=== PATIENT | female | born 1985 | race Caucasian/White ===

== ENCOUNTER → 2016-11-07 | Outpatient (CLI) | payer OTHER ==
[~2016-11-07] MED LIST: ACET50TA PO; MOTR200T44 PO; PRENTAB8 PO
[2016-11-07 18:35] LABS: MEAN CORPUSCULAR HEMOGLOBIN 30.6 pg (27.0-33.0); MEAN CORPUSCULAR HGB CONC 33.2 g/dl (32.0-36.5); RED CELL DISTRIBUTION WIDTH 12.7 % (11.5-14.5); WHITE BLOOD COUNT 9.2 K/mm3 (4.0-10.0)
[2016-11-07 19:24] LABS: FREE T4 0.85 NG/DL (0.76-1.46)
== END ==
LOC: M SMT 15:05
PROVIDERS: ATTEND Specialist
DX: R53.83 Other fatigue (principal)

== ENCOUNTER → 2018-07-30 | Outpatient (CLI) | payer OTHER ==
[~2018-07-30] MED LIST changes: -ACET50TA PO; +MAPA500T2 PO
[2018-07-30 13:29] LABS: BASO % 0.4 % (0.0-1.0); EOS # 0.1 10^3/uL (0.0-0.50); EOS % 0.8 % (0.0-3.0); HEMATOCRIT 42.8 % (36.0-47.0); HEMOGLOBIN 14.3 g/dl (12.0-15.5); LYMPH # 2.2 10^3/uL (1.5-4.5); LYMPH % 29.8 % (24.0-44.0); MEAN CORPUSCULAR HEMOGLOBIN 29.7 pg (27.0-33.0); MEAN CORPUSCULAR HGB CONC 33.4 g/dl (32.0-36.5); MONO # 0.5 10^3/uL (0.0-0.8); NEUTROPHILS # 4.5 10^3/uL (1.8-7.7); NEUTROPHILS % 61.9 % (36.0-66.0); PLATELET COUNT, AUTOMATED 271 10^3/uL (150-450); RED BLOOD COUNT 4.81 10^6/uL (4.00-5.40); WHITE BLOOD COUNT 7.2 10^3/uL (4.0-10.0)
[2018-07-30 13:58] LABS: RUBELLA IgG QUALITATIVE IMMUNE (IMMUNE)
[2018-07-30 14:27] LABS: HIV 1&2 SCREEN CENTAUR NEGATIVE (NEGATIVE)
[2018-07-30 15:07] LABS: CHLAMYDIA DNA AMPLIFICATION NEGATIVE (NEGATIVE); GC DNA AMPLIFICATION NEGATIVE (NEGATIVE)
== END ==
LOC: M SMT 09:07
PROVIDERS: ATTEND Specialist
DX: Z36.89 Encounter for other specified antenatal screening (principal); Z3A.09 9 weeks gestation of pregnancy

== ENCOUNTER → 2018-09-29 | Outpatient (CLI) | payer OTHER ==
[~2018-09-29] MED LIST changes: +LEVO88TA3 PO; +OXYC1TAB23 PO
--- NOTE | 2018-09-29 11:48 | REP ---
OBSTETRIC SONOGRAPHY: HISTORY: Supervision of for anatomy. FINDINGS: Scanning through the gravid uterus demonstrates a viable single intrauterine gestation in a variable lie. motion is observed and heart rate is recorded at 157 beats per minute. A fundal anterior placenta is seen without evidence of placenta previa, grade 0. Amniotic fluid is subjectively normal. Closed cervical length is measured at 3.8 cm viewed transabdominally. No extrauterine abnormality is observed. There are three small hypoechoic areas in the anterior myometrium consistent with fibroids. These measure 2.0, 2.3, and 0.9 cm in greatest diameter respectively. No anomaly is seen. spine less than optimally seen due to position. The following additional anatomic structures are identified and felt to be unremarkable: cranium, choroid plexus, cavum, cerebellum posterior fossa, face and profile, lungs, four-chamber heart with left and right ventricular outflow tract views, diaphragm, left-sided stomach, abdominal wall cord insertion, three-vessel umbilical cord, kidneys and bladder, upper and lower extremities. Biometry Chart: BPD 4.3 cm = 18 weeks 6 days HC 16.1 cm = 18 weeks 6 days AC 14.4 cm = 19 weeks 5 days FL 3.0 cm = 19 weeks 1 day HL 2.7 cm = 18 weeks 6 days HC/AC ratio normal 1.12 Cephalic index normal 0.73. Estimated weight 291 grams, 0 pounds 10 ounces, 87th percentile for 18 weeks 3 days. IMPRESSION: Viable single intrauterine gestation of 19 weeks 1 day by today's composite criteria. JEANETH by today's sonography February 22, 2019. spine is less than optimally seen. Three small uterine fibroids are noted. Electronically Signed by Spencer Luis MD 09/29/2018 11:50 A
== END ==
LOC: M RAD 09:53
PROVIDERS: ATTEND Specialist
DX: Z34.82 Encounter for supervision of other normal pregnancy, second trimester (principal); Z3A.19 19 weeks gestation of pregnancy

== ENCOUNTER → 2018-12-02 | Outpatient (CLI) | payer OTHER ==
[~2018-12-02] MED LIST changes: -LEVO88TA3 PO; -OXYC1TAB23 PO
[2018-12-02 10:24] LABS: BASO % 0.4 % (0.0-1.0); EOS # 0.1 10^3/uL (0.0-0.5); EOS % 0.7 % (0.0-3.0); HEMATOCRIT 38.1 % (36.0-47.0); HEMOGLOBIN 12.4 g/dl (12.0-15.5); LYMPH # 1.8 10^3/uL (1.5-5.0); LYMPH % 17.8 % (24.0-44.0); MEAN CORPUSCULAR HGB CONC 32.5 g/dl (32.0-36.5); MONO # 0.6 10^3/uL (0.0-0.8); MONO % 6.4 % (0.0-5.0); NEUTROPHILS # 7.3 10^3/uL (1.5-8.5); NEUTROPHILS % 73.6 % (36.0-66.0); PLATELET COUNT, AUTOMATED 189 10^3/uL (150-450); RED BLOOD COUNT 4.14 10^6/uL (4.00-5.40); WHITE BLOOD COUNT 9.9 10^3/uL (4.0-10.0)
[2018-12-02 11:07] LABS: FREE T4 1.01 NG/DL (0.76-1.46); THYROID STIMULATING HORMONE 1.44 uIU/ML (0.358-3.740)
== END ==
LOC: M SMT 08:11
PROVIDERS: ATTEND Specialist
DX: Z34.82 Encounter for supervision of other normal pregnancy, second trimester (principal); Z36.89 Encounter for other specified antenatal screening
CPT/HCPCS: 36415; 82950; 84439; 84443; 85025; 86850; 86900; 86901; J2790

== ENCOUNTER → 2019-02-03 | Outpatient (REF) | payer OTHER | LOC: M LAB REF 17:05 | PROVIDERS: ATTEND Advanced Practice Midwife | DX: Z36.85 Encounter for antenatal screening for Streptococcus B (principal) ==

== ENCOUNTER 2019-02-18 07:26 | Outpatient (CLI) | payer OTHER ==
[~2019-02-18] VITALS: Ht 162.6 cm; Wt 85.9 kg
[2019-02-18 07:49] VITALS: BP 114/75
[2019-02-18 08:33] VITALS: BP 123/74
[2019-02-18 10:11] VITALS: BP 136/74
[2019-02-20] MEDS ORDERED: LEVO88TA3 PO (09:45)
== END 2019-02-18 10:13 | disposition home or self-care (01) ==
LOC: M LDO 07:26
PROVIDERS: ATTEND Obstetrics & Gynecology
DX: O32.1XX1 Maternal care for breech presentation, fetus 1 (principal); Z3A.38 38 weeks gestation of pregnancy
CPT/HCPCS: 59025; 59412; 76815; G0378; G0463

== ENCOUNTER 2019-02-23 04:53 | Inpatient (IN) | payer OTHER ==
[2019-02-23] VITALS (9 sets, daily range): BP systolic 113–155; BP diastolic 60–99
[~2019-02-23] VITALS: Ht 160 cm; Wt 85.6 kg
[~2019-02-23 04:53] MED LIST changes: +LEVO88TA3 PO
[2019-02-23] MEDS ORDERED: ceFAZolin SOD 2 GM in IV 1 EA IV ONE (05:30)
[2019-02-23] MEDS ORDERED: BICITRA 30ML SOLN UDC PO ONE (05:30)
[2019-02-23] MEDS ORDERED: LR 1,000 ML IV ONE (05:30)
[2019-02-23 05:48] LABS: HEMATOCRIT 42.5 % (36.0-47.0); HEMOGLOBIN 13.7 g/dl (12.0-15.5); MEAN CORPUSCULAR HEMOGLOBIN 28.8 pg (27.0-33.0); MEAN CORPUSCULAR HGB CONC 32.2 g/dl (32.0-36.5); MEAN CORPUSCULAR VOLUME 89.3 fl (80.0-96.0); PLATELET COUNT, AUTOMATED 165 10^3/uL (150-450); RED BLOOD COUNT 4.76 10^6/uL (4.00-5.40)
[2019-02-23] MEDS ORDERED: NALOXONE INJ 0.4 MG/1 ML VIAL (J2310) IV PRN ×2 (08:33)
[2019-02-23] MEDS ORDERED: ONDANSETRON 4MG/2ML VIAL (J2405) IV PRN ×3 (08:33→10:00)
[2019-02-23] MEDS ORDERED: diphenhydrAMINE INJ 50MG/ML VIAL (J1200) IV PRN (08:33)
[2019-02-23] MEDS ORDERED: NALBUPHINE HCL 10 MG/ML AMP (J2300) IV PRN (08:33)
[2019-02-23] MEDS ORDERED: METOCLOPRAMIDE INJ 10MG/2ML VIAL (J2765) IV PRN ×2 (08:33→10:00)
[2019-02-23] MEDS ORDERED: OXYTOCIN INJ 10 UNITS/ML VIAL (J2590) As Ordered ONE (08:38)
[2019-02-23] MEDS ORDERED: ONDANSETRON 4MG/2ML VIAL (J2405) As Ordered ONE (08:38)
[2019-02-23] MEDS ORDERED: MORPHINE PRES-FREE INJ 10 MG/10 ML VIAL (J2274) As Ordered ONE (08:38)
[2019-02-23] MEDS ORDERED: ePHEDrine SULFATE 25 MG/5 ML(5MG/ML) SYRINGE As Ordered ONE (08:38)
[2019-02-23] MEDS ORDERED: KETOROLAC 60 MG/2 ML VIAL (J1885) As Ordered ONE (08:42)
[2019-02-23] MEDS ORDERED: GLYCOPYRROLATE INJ 0.2 MG/ML 2 ML VIAL As Ordered ONE (08:44)
[2019-02-23] MEDS: PRENATAL VITAMINS CHEWABLE TABLET PO SCH (09:00)
[2019-02-23] MEDS ORDERED: OXYTOCIN DRIP 30 UNITS in IV 1 EA IV SCH (09:36)
[2019-02-23] MEDS ORDERED: PERCOCET 5MG/325MG TAB PO PRN ×3 (09:45→10:00)
[2019-02-23] MEDS ORDERED: MEASLES,MUMPS,RUBELLA VACCINE INJ (MMR-II) (90707) SC SCH (09:45)
[2019-02-23] MEDS ORDERED: DOCUSATE SODIUM 100 MG CAP PO PRN (09:45)
[2019-02-23] MEDS ORDERED: RHOGAM 300 MCG (1500 IU) INJ (J2790) IM SCH (09:45)
[2019-02-23] MEDS ORDERED: LR 1,000 ML IV SCH (10:00)
[2019-02-23] MEDS ORDERED: fentaNYL 100 MCG/2 ML INJECTION (J3010) IV PRN (10:00)
[2019-02-23] MEDS ORDERED: OXYTOCIN 30 UNITS IN 0.9% NaCl 500ML IV BAG (J2590) As Ordered ONE (10:32)
--- NOTE | 2019-02-23 12:17 | RO ---
DATE OF PROCEDURE: 02/23/2019 PREPROCEDURE DIAGNOSIS: 39 weeks gestation, breech presentation. POSTPROCEDURE DIAGNOSIS: 39 weeks gestation, breech presentation. PROCEDURE: Primary low transverse section. SURGEON: Dr. Clarke Madden TARP REPAIRER: Paulina Miller CNM ANESTHESIA: Spinal. ESTIMATED BLOOD LOSS: 600 mL. URINE OUTPUT: 100 mL. FINDINGS: 7 pound 11 ounce, 3500 gram, male infant, Apgars 9 and 9. Compound breech presentation. Uterus with multiple small fibroids. Normal appearing ovaries and fallopian tubes. DESCRIPTION OF PROCEDURE: The patient was taken to the operating room where spinal anesthesia was induced. She was prepped and draped in sterile fashion in the supine position. A Veronica catheter was placed. A Pfannenstiel skin incision was made with the scalpel and carried through to the fascia. The fascia was nicked and extended. The fascia was dissected off the rectus muscles. The peritoneal cavity was entered. The bladder flap was created. A Mobius retractor was placed. A curvilinear incision was made in the lower uterine segment until clear fluid was noted. This was extended manually. The infant was delivered from a compound breech presentation using standard maneuvers without difficulty. The cord was doubly clamped and cut. The was handed off to the awaiting nurses. The placenta was expressed. The uterus was cleared of clots and debris. The uterus was closed with #0 Vicryl in a running locked fashion. A second imbricating layer of #0 Vicryl was placed. The retractor was removd. The peritoneum was closed with #2-0 Vicryl in a running fashion. The fascia was closed with #0 Vicryl in a running fashion. The deep layer was irrigated and closed with #2-0 chromic. The skin was closed with #4-0 Monocryl subcuticular sutures. Sponge, instrument and needle counts were correct. Paulina Miller CNM, assisted throughout the procedure. She helped to create each layer of the incision, helped expel the fetus and close all subsequent layers.
[2019-02-23] MEDS: LR 1,000 ML IV SCH ×2 (14:30→21:30)
[2019-02-23] MEDS: KETOROLAC 30 MG/ML VIAL (J1885) IV SCH ×2 (14:31→21:40)
[2019-02-24 02:09] VITALS: BP 116/59
[2019-02-24] MEDS: KETOROLAC 30 MG/ML VIAL (J1885) IV SCH (03:26)
[2019-02-24] MEDS: LEVOTHYROXINE 88MCG TABLET (0.088 MG) PO SCH (05:44)
[2019-02-24 06:17] VITALS: BP 128/70
[2019-02-24 06:21] LABS: HEMATOCRIT 31.2 % (36.0-47.0); MEAN CORPUSCULAR HEMOGLOBIN 29.5 pg (27.0-33.0); MEAN CORPUSCULAR HGB CONC 32.1 g/dl (32.0-36.5); PLATELET COUNT, AUTOMATED 110 10^3/uL (150-450); RED BLOOD COUNT 3.39 10^6/uL (4.00-5.40); WHITE BLOOD COUNT 11.2 10^3/uL (4.0-10.0)
[2019-02-24] MEDS ORDERED: OXYC1TAB23 PO (07:19)
[2019-02-24] MEDS: PRENATAL VITAMINS CHEWABLE TABLET PO SCH (07:54)
--- NOTE | 2019-02-24 07:57 | IPNPDOC ---
Progress Note Date of Service: Feb 24, 2019 Day#: 1 Progress Note SUBJECT: She has been ambulating, voiding spontaneously without issue and tolerating regular diet. Breast feeding without issue. She is saline locked. She reports her pain has been managed well. She has no complaints currently. OBJECTIVE: VITAL SIGNS: Within normal limits, afebrile. Alert and oriented times three. Breath sounds clear to auscultation. Heart rate: Regular rate and rhythm, no murmurs, rubs or gallops. Abdomen: Fundus firm at U. Minimal lochia. ASSESSMENT: Day 1 postoperative PLAN: 1. Continue supportive nursing care and pain management. 2. Anticipate discharge to home tomorrow. VS, I&O, 24H, Fishbone Vital Signs/I&O Vital Signs Date Time Temp Pulse Resp B/P (MAP) Pulse Ox O2 Delivery O2 Flow Rate FiO2 02/24/19 06:17 99.3 71 18 128/70 (89) 95 Room Air I&O- Last 24 Hours up to 6 AM 02/24/19 06:00 Intake Total 1790 ml Output Total 1855 ml Balance -65 ml Laboratory Data 24H LABS Laboratory Tests 2 02/24/19 06:01: Nucleated Red Blood Cells % (auto) 0.0 CBC/BMP Laboratory Tests 02/24/19 06:01 VICKIE GUSMAN CNM Feb 24, 2019 07:57
[2019-02-24] MEDS: IBUPROFEN 800 MG TAB PO SCH ×2 (10:44→19:49)
[2019-02-24 10:46] VITALS: BP 121/56
[2019-02-24 14:00] VITALS: BP 143/79
[2019-02-24 18:00] VITALS: BP 143/75
[2019-02-24 22:00] VITALS: BP 131/85
[2019-02-25 02:00] VITALS: BP 126/77
[2019-02-25] MEDS: IBUPROFEN 800 MG TAB PO SCH (03:21)
[2019-02-25] MEDS: LEVOTHYROXINE 88MCG TABLET (0.088 MG) PO SCH (05:13)
[2019-02-25 05:41] VITALS: BP 121/67
[2019-02-25] MEDS: PRENATAL VITAMINS CHEWABLE TABLET PO SCH (09:00)
--- NOTE | 2019-02-25 10:36 | DSES ---
DATE OF ADMISSION: 02/23/2019 DATE OF DISCHARGE: DISCHARGE DIAGNOSIS: Primary section for breech presentation postoperative day 2 stable condition. SURGEON: Dr. Clarke Madden CAREER TECHNICAL COUNSELOR: Marlene Miller, Certified Nurse Salvage Clerk HISTORY: Derrell is a 33-year-old, 2, para 2-0-0-2 now, who was admitted for primary section due to persistent breech presentation with a failed external cephalic version (ECV). Her surgery was uncomplicated. Estimated blood loss 600 mL. She did deliver a male infant weighing 7 pounds 11 ounces (3500 grams) with 9 and 9. Her postoperative course has been uncomplicated. She has been out of bed for self care, shahnaz care and infant care. She is tolerating oral fluids and a regular diet. She is voiding without difficulty and passing flatus. Her pain has been well controlled with oral pain medications ibuprofen and Tylenol. OBJECTIVE: Temperature 98.3, pulse 69, respirations 70. Blood pressure is 121/67. She is in 98% on room air. Preoperative CBC with hemoglobin of 13.7, hematocrit 42.5, platelet 165. Postoperative CBC with hemoglobin of 10, hematocrit 31.2, platelet 110. Her breasts are soft, nontender. Nipples intact. There are no cracks. No bleeding. Her abdomen with fundus firm at one fingerbreadth below umbilicus. The incision with Optifoam dressing applied. There is no new drainage. Perineum is intact with lochia rubra scant. Bilateral extremities negative for edema. PLAN: Discharge the patient home today. She is to followup with Dr. Clarke Madden for a 2 week incision check and an 8 week visit. Prescriptions have been E-prescribed to her pharmacy by Dr. Clarke Madden. I did review discharge instructions that include breast care, incision care, shahnaz care, pelvic rest, activity and lifting restrictions, danger signs to report and access to her provider. The patient and her have had their questions answered and request discharge home.
== END 2019-02-25 12:45 | disposition home or self-care (01) | DRG 788 ==
LOC: M LDI 04:53 → M OBS 11:03
PROVIDERS: ADMIT Specialist; ATTEND Specialist
PROC: 10D00Z1 Extraction of Products of Conception, Low, Open Approach (ICD-10-PCS; principal; 2019-02-23 07:30)
DX: O32.1XX0 Maternal care for breech presentation, not applicable or unspecified (principal); Z3A.39 39 weeks gestation of pregnancy; Z37.0 Single live birth; O99.284 Endocrine, nutritional and metabolic diseases complicating childbirth; E03.9 Hypothyroidism, unspecified

== ENCOUNTER → 2021-06-02 | Outpatient (REF) | payer OTHER ==
[~2021-06-02] MED LIST changes: +OXYC1TAB23 PO
== END ==
LOC: M PLALAB 13:57
PROVIDERS: ATTEND Specialist
DX: R87.610 Atypical squamous cells of undetermined significance on cytologic smear of cervix (ASC-US) (principal); Z12.4 Encounter for screening for malignant neoplasm of cervix
CPT/HCPCS: 87624; G0123

== ENCOUNTER → 2022-11-06 | Outpatient (REF) | payer MEDICAID | LOC: M SFHCWAGY 13:55 | PROVIDERS: ATTEND Specialist | DX: Z12.4 Encounter for screening for malignant neoplasm of cervix (principal) ==

== ENCOUNTER → 2025-01-20 | Outpatient (REF) | payer OTHER, MEDICAID ==
[2025-01-22 15:57] LABS: HPV APTIMA Not Detected (Not Detected)
== END ==
LOC: M SFHCWAGY 10:39
PROVIDERS: ATTEND Specialist
DX: Z01.419 Encounter for gynecological examination (general) (routine) without abnormal findings (principal)
CPT/HCPCS: 87624; G0123